=== PATIENT | male | born 1975 | race Caucasian/White ===

== ENCOUNTER 2017-04-30 06:55 | Emergency (ER) | payer OTHER ==
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
[2017-04-30 07:27] VITALS: RESP 16; TEMP 97.4
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
== END 2017-04-30 08:20 | disposition home or self-care (01) ==
LOC: ER 06:55
DX: M54.2 Cervicalgia (principal); V50.5XXA Driver of pick-up truck or van injured in collision with pedestrian or animal in traffic accident, initial encounter
CPT/HCPCS: 72125; 99282